=== PATIENT | male | born 1990 | race Caucasian/White ===

== ENCOUNTER 2018-01-09 05:40 | Emergency (ER) | payer OTHER ==
[~2018-01-09] VITALS: Ht 177.8 cm; Wt 90.7 kg
--- NOTE | 2018-01-09 05:48 | ED NECK/BACK PAIN COMPLAINT ---
History of Present Illness General Chief Complaint: Low Back Pain/Injury Stated Complaint: SEVERE BACK PAIN PER PTH Source: patient Exam Limitations: no limitations Vital Signs & Intake/Output Vital Signs & Intake/Output Vital Signs Date Time Temp Pulse Resp B/P B/P Pulse O2 O2 Flow FiO2 Mean Ox Delivery Rate 01/09 0559 Room Air 01/09 0558 98.3 106 18 149/86 98 Room Air Allergies Coded Allergies: No Known Allergies (01/09/18) Triage Nurses Notes Reviewed? yes Onset: Abrupt Duration: hour(s): Timing: recent history Quality/Severity: moderate Radiation: from right back to right flank Context: "I woke up and the pain was unbearable." Method of Injury: unknown Loss of Consciousness: no loss of consciousness Modifying Factors: movement, rest Associated Symptoms: muscle spasm, nausea HPI: 27 yo gentleman present with right back pain radiates to right flank. "I was fine when I went to bed, but when I woke up my back was really painful." He notes mild nausea. He notes that pain wraps around from the right back into the right flank. He denies SI/HI/Hllucination. (Lino MASON,Mark Rasmussen) Reconcile Medications Methadone HCl 10 MG/ML ORAL.CONC 20 MG PO DAILY MAINTENCE (Reported) (Jessica MASON,Keny Padron) Past History Travel History Traveled to [place] past 21 day No Medical History Any Pertinent Medical History? see below for history Other Medical Hx: methadone for opioid depedence Surgical History Surgical History: none Psychosocial History What is your primary language Surinamese Family History Comment: mother with h/o kidney stones Family History, If Any: MOTHER (kidney stones). Hx Contributory? Yes (Lino MASON,Mark Rasmussen) Review of Systems Review of Systems Constitutional: Reports: no symptoms. Eyes: Reports: no symptoms. Ears, Nose, Throat, Mouth: Reports: no symptoms. Respiratory: Reports: no symptoms. Cardiovascular: Reports: no symptoms. Gastrointestinal/Abdominal: Reports: no symptoms. Musculoskeletal: Reports: no symptoms. Skin: Reports: no symptoms. Neurological/Psychological: Reports: no symptoms. All Other Systems: Reviewed and Negative (Lino MASON,Mark Rasmussen) Physical Exam Physical Exam General Appearance: well developed/nourished, mild distress, moderate distress Head: atraumatic Eyes: Bilateral: PERRL, EOMI. Ears, Nose, Throat, Mouth: hearing grossly normal Neck: normal inspection, supple, full range of motion, normal alignment Respiratory: normal breath sounds Cardiovascular: regular rate/rhythm Gastrointestinal: soft, non-tender Back: normal inspection, right sided muscle spasm in mid thoracic region. Extremities: normal range of motion Neurologic/Psych: awake, alert, oriented x 3, normal mood/affect Skin: intact, normal color, warm/dry Core Measures CVA/TIA Diagnosis: No (Lino MASON,Mark Rasmussen) Progress Differential Diagnosis: pyelo/UTI, T/L spine injury, ureterolithiasis Plan of Care: Orders Procedure Date/time Status URINALYSIS 01/10 608 Complete LIPASE 01/10 608 Complete COMPREHENSIVE METABOLIC PANEL 01/10 608 Complete CBC WITHOUT DIFFERENTIAL 01/10 608 Complete AMYLASE 01/10 608 Complete Laboratory Tests 01/09/18 0735: Urine Color YEL, Urine Clarity CLEAR, Urine pH 5.5, Ur Specific [place] >= 1.030 , Urine Protein NEG, Urine Ketones NEG, Urine Nitrite NEG, Urine Bilirubin NEG, Urine Urobilinogen 0.2, Ur Leukocyte Esterase NEG, Ur Microscopic EXAM NOT REQUIRED, Urine Hemoglobin NEG, Urine Glucose NEG 01/09/18 0617: Anion Gap 15, Estimated GFR > 60, BUN/Creatinine Ratio 13.3, Glucose 112 H, Calcium 9.9, Total Bilirubin 0.9, AST 54, ALT 37, Alkaline Phosphatase 65, Total Protein 8.5 H, Albumin 4.8, Globulin 3.7, Albumin/Globulin Ratio 1.3, Amylase 57, Lipase 134, CBC w Diff MAN DIFF ORDERED, RBC 5.54, MCV 86.8, MCH 28.5, MCHC 32.8 L, RDW 14.2, MPV 7.9, Gran % 55.8, Lymphocytes % 33.2, Monocytes % 5.6, Eosinophils % 5.1 H, Basophils % 0.3, Absolute Granulocytes 6.3, Segmented Neutrophils 56, Band Neutrophils 1, Absolute Lymphocytes 3.7 H, Lymphocytes 34, Monocytes 5, Absolute Monocytes 0.6, Eosinophils 4, Absolute Eosinophils 0.6, Absolute Basophils 0, Platelet Estimate ADEQUATE, Normocytic RBCs VERIFIED, Normochromic RBCs VERIFIED Diagnostic Imaging: Viewed by Me: CT Scan. Discussed w/RAD: CT Scan. 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 I have updated Fermín on his test results. He is beginning to feel better. Given his essentially negative workup I suspect muscle spasms. He is beginning to feel better with medications administered. He admits to being on methadone currently for prior narcotic addiction issue. (Keny Lopez MD) Departure Departure Disposition: HOME OR SELF CARE Condition: Stable Clinical Impression Primary Impression: Back pain Referrals: Kandace MASON,Catarino Sheppard (PCP/Family) Departure Forms: Customer Survey General Discharge Information (Mark Huynh MD) Departure Additional Instructions: Ketorolac as needed for pain, orphenadrine as needed for muscle spasms. Follow- up with Dr. orta within the next 24-48 hours for reevaluation. Avoid heavy lifting or other exertion. Return if any concerns or sudden worsening. Please note that there might be incidental findings in your evaluation that are unrelated to the current emergency department visit. Please notify your primary care doctor about this emergency department visit in order to obtain and review all of the testing performed so that these incidental findings can be monitored as needed. If you had an x-ray performed, please understand that some fractures may not be seen on the initial set of x-rays. If your symptoms persist you might need a repeat set of x-rays to check for such a fracture. If you had a laceration evaluated, please understand that foreign bodies such as glass or wood may not be visible to the naked eye or on plain x-rays. If the wound becomes red, swollen, increasingly more painful or if there is any drainage from the wound, please have it reevaluated by a physician for the possibility of a retained foreign body. If you're unable to follow up as outlined in the discharge instructions please return to the emergency department. Thank you for choosing the [facility] for your care. It was a pleasure to serve you today. Keny Lopez M.D. [facility] Prescriptions: Current Visit Scripts Ketorolac Tromethamine 1 TAB PO Q6P PRN BACK PAIN #16 TAB pATIENT RECEIVED iv KETOROLAC IN THE EMERGENCY DEPARTMENT Orphenadrine Citrate 1 TAB PO BID PRN MUSCLE PAIN/SPASMS #14 TAB (Jessica MASON,Keny Padron)
[2018-01-09 06:28] LABS: ABSOLUTE BASOPHIL COUNT 0 /CUMM (0.0-0.2); ABSOLUTE EOSINOPHIL COUNT 0.6 /CUMM (0.0-0.7); ABSOLUTE GRANULOCYTE CT 6.3 /CUMM (1.4-6.5); ABSOLUTE LYMPH COUNT 3.7 /CUMM (1.2-3.4); ABSOLUTE MONOCYTE COUNT 0.6 /CUMM (0.10-0.60); BASOPHIL % 0.3 % (0.0-2.0); EOSINOPHIL % 5.1 % (0-5); GRANULOCYTE % 55.8 % (42.2-75.2); HEMATOCRIT 48.1 % (42-52); MEAN CORPUSCULAR HGB 28.5 PG (27.0-31.0); MEAN CORPUSCULAR HGB CONC 32.8 G/DL (33.0-37.0); MEAN CORPUSCULAR VOLUME 86.8 FL (80.0-94.0); MEAN PLATELET VOLUME 7.9 FL (7.4-10.4); PLATELET COUNT 328 /CUMM (130-400); RBC DISTRIBUTION WIDTH 14.2 % (11.5-14.5); RED BLOOD CELL CT 5.54 /CUMM (4.70-6.10); WHITE BLOOD CELL COUNT 11.2 /CUMM (4.8-10.8)
--- NOTE | 2018-01-09 06:55 | CT SCAN REPORT ---
EXAMINATION: CT ABDOMEN AND PELVIS WITHOUT CONTRAST CLINICAL INFORMATION: Right flank pain. COMPARISON: None TECHNIQUE: Multidetector volumetric imaging was performed from the superior aspect of the liver through the pubic symphysis. Sagittal and coronal reformatted images were obtained on the technologist's workstation. DLP: 610.83 mGy-cm FINDINGS: LUNG BASES: The visualized lung bases are unremarkable. LIVER, GALLBLADDER, AND BILIARY TREE: The liver is normal in size, shape, and attenuation. No focal hepatic lesion or biliary ductal dilatation is present. The gallbladder is unremarkable with no evidence of radiopaque gallstones, gallbladder wall thickening, or obvious pericholecystic inflammatory changes. PANCREAS: Unremarkable. SPLEEN: Unremarkable. ADRENAL GLANDS: Unremarkable. KIDNEYS AND URETERS: The kidneys are normal in size, shape, and attenuation. No hydronephrosis, hydroureter, or calculi seen. No perinephric stranding. BLADDER: Unremarkable. GASTROINTESTINAL TRACT: No acute change of the bowel. No bowel obstruction. No bowel wall thickening or edema. Moderate volume of stool in the colon. The appendix is normal. The small bowel loops are unremarkable. ABDOMINAL WALL: No significant hernia is appreciated. LYMPH NODES: Normal. VASCULAR: Unremarkable. PELVIC VISCERA: Unremarkable. OSSEOUS STRUCTURES: Unremarkable. IMPRESSION: Normal CT scan abdomen and pelvis. Normal kidney, ureter and bladder. Normal appendix.
[2018-01-09] MEDS ORDERED: METHADONE10 MG/1 M2 PO (07:57)
[2018-01-09] MEDS ORDERED: KETOROLAC TROME10 M1 PO (08:01)
[2018-01-09] MEDS ORDERED: ORPHENADRINE C100 MG PO (08:01)
[2018-01-09 08:20] VITALS: BP 132/98
== END 2018-01-09 08:20 ==
LOC: ERH 05:40
PROVIDERS: Pediatrics
DX: M54.5 Low back pain (principal)
CPT/HCPCS: 74176; 81003; 96374; 96375; J1885; J2405